=== PATIENT | female | born 1995 ===

== ENCOUNTER 2022-12-28 01:20 | Emergency (ER) | payer SELFPAY ==
[2022-12-28] MEDS ORDERED: Metoclopramide 10 MG/2 ML SDV IVPUSH ONE (01:47)
[2022-12-28] MEDS ORDERED: LORazepam 2 MG/ML SDV IVPUSH ONE ×2 (01:47→03:29)
[2022-12-28] MEDS ORDERED: Gabapentin 100 MG Cap PO ONE (01:48)
[2022-12-28] MEDS ORDERED: MVI, Adult with Vitamin K 10 ML in Dextrose 5%-Lactated Ringers 1,000 ML IV SCH ×2 (02:00)
[2022-12-28] MEDS ORDERED: Thiamine 200 MG/2 ML MDV IVPUSH ONE (02:02)
[2022-12-28] MEDS ORDERED: Cyanocobalamin (Vitamin B12) 1,000 MCG/ML SDV IM ONE (02:03)
[2022-12-28] MEDS ORDERED: Folic Acid 50 MG/10 ML MDV IV ONE (02:03)
[2022-12-28] MEDS ORDERED: Dextrose 5%-Lactated Ringers 1,000 ML IV SCH (02:15)
[2022-12-28 03:11] LABS: ESTIMATED GFR 91 mL/min (>60)
[2022-12-28] MEDS ORDERED: Magnesium Oxide 400 MG Tab PO ONE (03:30)
[2022-12-28] MEDS ORDERED: Potassium Chloride 20 MEQ Tab.ER PO ONE (03:30)
== END 2022-12-28 04:00 | disposition home or self-care (01) ==
LOC: JD.ED 01:20
DX: F10.239 Alcohol dependence with withdrawal, unspecified (principal); G47.00 Insomnia, unspecified; E83.42 Hypomagnesemia; E87.6 Hypokalemia; G62.9 Polyneuropathy, unspecified
CPT/HCPCS: 36415; 80053; 80307; 82009; 82607; 83605; 83690; 83735; 84443; 84703; 85025; 85610; 85730; 86140; 96361; 96372; 96374; 96375; 96376; 99284; A9270; J2060; J2765; J3411; J3420; J7121